=== PATIENT | female | born 1975 | race African-American/Black ===

== ENCOUNTER 2016-08-23 15:01 | Emergency (ER) | payer MEDICAID ==
[~2016-08-23 15:01] MED LIST: HEPARIN SQ; MOTRIN-DPS800 MG PO; PRENATAL VIT1 TAB PO; TYLENOL #3 DPS1 TAB PO; [UNRECOGNIZED DRUG - REMARK] TP
--- NOTE | 2016-08-31 15:15 | ER ---
ADMIT: 08/23/2016 RM/LOC: ER [facility] MR#: [id number] [address] [id number] SHANNA BATES [address] [place] [id number] Emergency Room Report SEX: F AGE: 41 : 1975 DATE: 08/23/2016 ADDENDUM: This patient comes to the ER because she has had redness in her eye and itchiness since yesterday. When she woke up this morning, she notices that there is increased redness in the left eye, she denies any changes of her vision. Denies any trauma and no foreign body. On physical exam, she is alert and oriented. Eyes are EOMI, PERRLA. She does have a subconjunctival hematoma on the left side of her sclera. I did see that with fluorescein. There are no corneal abrasions. There is redness and it is injected in the left eye. Because of the itchiness and drainage, I wrote a prescription for erythromycin ointment. If she is not feeling better in the next few days, she is to follow up with Dr. Reynolds. Please see my T-sheet. CHARLES Menard / Jeff Cho MD / delial JOB #: [id number] CC: Jeff Cho MD, Attending Physician Isabel Reynolds MD, Family Physician
== END 2016-08-23 15:45 | disposition home or self-care (01) ==
LOC: ER 15:01
DX: H10.9 Unspecified conjunctivitis (principal); Z86.711 Personal history of pulmonary embolism